=== PATIENT | male | born 1945 | race Caucasian/White ===

== ENCOUNTER 2023-04-29 14:18 | Emergency (ER) | payer MEDICARE, BC ==
[~2023-04-29] VITALS: Ht 193 cm; Wt 81.4 kg
[2023-04-29 20:56] VITALS: BP 113/74; PULSE 68; RESP 17; TEMP 98.4; O2SAT 98
--- NOTE | 2023-04-29 21:34 | NUR ---
REVIEWED LVNS ASSESSMENT, AGREE WITH ASSESSMENT.
== END 2023-04-29 20:59 | disposition home or self-care (01) ==
LOC: ER 14:20
DX: R42 Dizziness and giddiness (principal)
CPT/HCPCS: 99281

== ENCOUNTER 2024-01-10 10:33 | Day surgery (SDC) | payer MEDICARE, BC ==
[2024-01-06 10:41] LABS: BASOPHILS % (AUTO) 0.6 % (0-1); EOSINOPHILS # (AUTO) 0.1 X10'3 (0-0.9); EOSINOPHILS % (AUTO) 1.7 % (0-6); HEMATOCRIT 39.8 % (42.0-52.0); HEMOGLOBIN 13.2 g/dl (14.0-17.9); LYMPHOCYTES # (AUTO) 0.9 X10'3 (1.1-4.8); LYMPHOCYTES % (AUTO) 14.8 % (21-51); MEAN CORPUSCULAR HEMOGLOBIN 30.6 PG (27.0-31.0); MEAN CORPUSCULAR HGB CONC 33.1 g/dL (33.0-36.5); MEAN CORPUSCULAR VOLUME 92.4 FL (78-98); MEAN PLATELET VOLUME 8.7 FL (7.4-10.4); MONOCYTES # (AUTO) 0.5 X10'3 (0-0.9); MONOCYTES % (AUTO) 7.8 % (2-12); NEUTROPHILS # (AUTO) 4.4 X10'3 (1.8-7.7); NEUTROPHILS % (AUTO) 75.1 % (42-75); PLATELET COUNT 218 X10'3 (140-440); RED BLOOD COUNT 4.31 X10'6 (4.70-6.10); RED CELL DISTRIBUTION WIDTH 15.6 % (11.5-14.5); WHITE BLOOD COUNT 5.9 X10'3 (4.5-11.0)
[2024-01-06 10:46] LABS: ANION GAP 12 (8-16); BLOOD UREA NITROGEN 40 MG/DL (7-18); BUN/CREATININE RATIO 9.7 (10.0-20.0); CALCIUM 10.3 MG/DL (8.5-10.1); CHLORIDE 105 MMOL/L (99-107); CREATININE 4.13 MG/DL (0.60-1.10); GLUCOSE 101 MG/DL (70-104); POTASSIUM 4.5 MMOL/L (3.5-5.1); SODIUM 140 MMOL/L (135-145); TOTAL CARBON DIOXIDE 23.4 MMOL/L (24-32); eGFR 14 ML/MIN
[2024-01-06 10:50] LABS: APTT 31 SECONDS (22-32); INR 1.1 INR; PROTHROMBIN TIME 11.8 SECONDS (9.0-12.0)
[~2024-01-10] VITALS: Ht 193 cm; Wt 99.3 kg
[2024-01-10] VITALS (10 sets, daily range): BP systolic 101–144; BP diastolic 59–109; PULSE 70–125; RESP 16–70; TEMP 97.9; O2SAT 94–98
[2024-01-10] MEDS ORDERED: LISI5TAB22 PO (11:03)
[2024-01-10] MEDS ORDERED: FLEC50TA PO (11:03)
[2024-01-10] MEDS ORDERED: CHLO25TA10 PO (11:03)
[2024-01-10] MEDS ORDERED: CHLO473M2 PO (11:03)
[2024-01-10] MEDS ORDERED: APIX5TAB3 PO (11:03)
[2024-01-10] MEDS: normal saline 1000ml 1,000 ML IV SCH (13:30)
[2024-01-10] MEDS: MIDAZolam 1mg/ml 10ml vial IV ONE (13:30)
[2024-01-10] MEDS: fentaNYL/PF 50MCG/1 ML 2ML syringe IV ONE (13:30)
== END 2024-01-10 14:33 | disposition home or self-care (01) ==
LOC: SSTAY O 10:33
PROVIDERS: ATTEND Student in an Organized Health Care Education/Training Program
DX: I48.91 Unspecified atrial fibrillation (principal); I10 Essential (primary) hypertension; Z79.01 Long term (current) use of anticoagulants; Z79.2 Long term (current) use of antibiotics; Z79.899 Other long term (current) drug therapy; Z95.0 Presence of cardiac pacemaker
CPT/HCPCS: 36415; 80048; 85025; 85610; 85730; 92960; 93005; A4620; J2250; J3010; J7030; Z7610